=== PATIENT | male | born 1970 | race Caucasian/White ===

== ENCOUNTER → 2017-08-15 08:22 | Outpatient (CLI) | payer MEDICAID | END | disposition home or self-care (01) | LOC: D.MRI 08:22 | DX: R22.1 Localized swelling, mass and lump, neck (principal); R13.10 Dysphagia, unspecified ==

== ENCOUNTER 2020-12-09 10:47 | Day surgery (SDC) | payer BC ==
[~2020-12-09] VITALS: Ht 182.9 cm; Wt 88.6 kg
--- NOTE | ~2020-12-09 | OP ---
PATIENT NAME: WENDY MAC MEDICAL RECORD: [id number] :68 LOCATION:[facility] ADMISSION DATE: SURGEON: AILYN GRAY MD DATE OF OPERATION: 12/09/2020 PREOPERATIVE DIAGNOSIS: Perirectal abscess. POSTOPERATIVE DIAGNOSIS: Perirectal abscess. PROCEDURE: I and D of left perirectal abscess. SURGEON: Ailyn Gray MD DESCRIPTION OF PROCEDURE: The patient was given a spinal anesthesia and the perianal region was prepped and draped in sterile fashion. On digital rectal exam, I can feel firmness to the left side of the anus. A skin incision was made longitudinally on the 3 o'clock position, and using a hemostat, I did blunt dissection up to the abscess cavity. Once we penetrated the cavity, there was a spillage of purulent material. Cultures were taken times 3. We then irrigated out the abscess cavity with peroxide and saline solution. We then packed the wound with iodoform gauze, quarter inch packing strips, and covered it with an ABD pad. COMPLICATIONS: None. CONDITION: Stable. ANESTHESIA: Spinal. BLOOD LOSS: Minimal. TRANSINT:[id number] Voice Confirmation ID: [id number] DOCUMENT ID: [id number] AILYN GRAY MD CC: [id number] DICTATION DATE: 12/09/20 1530 CRYPTOLOGIC TECHNICIAN TECHNICAL: 12/10/20 0104 [facility] 12/09/20 [id number] [place] [address]
[2020-12-09 10:54] VITALS: BP 123/67
[2020-12-09 12:13] LABS: BILIRUBIN NEGATIVE (NEGATIVE); KETONE NEGATIVE (NEGATIVE); NITRITE NEGATIVE (NEGATIVE); UROBILINOGEN NORMAL mg/dL (< 2)
[2020-12-09 12:17] LABS: CALC OSMOLALITY 276 mosm/kg (275-300); CALCIUM 8.9 mg/dL (8.5-10.1); CARBON DIOXIDE 27.4 mmol/L (21.0-32.0); CHLORIDE - SERUM 101 mmol/L (98-107); CREATININE - SERUM 1.1 mg/dL (0.6-1.3); GLUCOSE 106 mg/dL (74-106); POTASSIUM - SERUM 4.2 mmol/L (3.5-5.1); SODIUM 137 mmol/L (136-145); UREA NITROGEN 21 mg/dL (7-18); eGFR NON AFRICAN AMERICAN 75 mL/min (90-120)
[2020-12-09 12:25] LABS: BASOPHILS 0.1 % (0-2); EOSINOPHILS 0.1 % (0-7); HEMATOCRIT 40.9 % (42.0-54.0); HEMOGLOBIN 13.9 g/dL (13.5-17.5); IMMATURE GRANULOCYTES 0.1 % (0-5); LYMPHOCYTE ABS# 1.26 10x3/uL (1.32-3.57); LYMPHOCYTES 10.4 % (15-50); MCH 30.6 pg (26.0-34.0); MCV 90.1 fL (80.0-100.0); MEAN PLATELET VOLUME 9.7 fL (7.4-10.4); MONOCYTES 8.1 % (2-11); NEUTROPHIL ABS# 9.87 10x3/uL (1.78-5.38); NEUTROPHILS 81.2 % (40-80); PLATELET COUNT 233 10x3/uL (130-400); RBC 4.54 10x6/uL (4.20-6.10); RDW 12.8 % (11.5-14.5); WBC 12.2 10x3/uL (4.8-10.8)
[2020-12-09 12:33] LABS: BILIRUBIN NEGATIVE (NEGATIVE); KETONE NEGATIVE (NEGATIVE); NITRITE NEGATIVE (NEGATIVE); UROBILINOGEN NORMAL mg/dL (< 2)
[2020-12-09 14:09] VITALS: Ht 182.9 cm; Wt 88.6 kg
[2020-12-09] MEDS ORDERED: BACTRIM DS TAB1 EAC1 PO (15:28)
[2020-12-09] MEDS ORDERED: HYDROCODON-ACE1 EA10 PO (15:29)
--- NOTE | 2020-12-09 16:53 | NUR ---
1645 PT HAS CHILLS AND 2 WARM BLANKES PROVIDED
--- NOTE | 2020-12-09 17:47 | NUR ---
1735 DEMEROL 12.5MG GIVEN SLOW IVP FOR SHIVERING. PATIENT VOMITED ABOUT 3-4 MINUTES AFTER GIVING DEMEROL. COOL COMPRESS TO HEAD AND NECK FOR COMFORT. AT BEDSIDE.
--- NOTE | 2020-12-09 18:13 | NUR ---
1755 DISCHARGE INSTRUCTIONS GIVEN TO PATIENT'S SPOUSE. VOICED UNDERSTANDING.
--- NOTE | 2020-12-09 19:01 | NUR ---
1747 PATIENT'S IV D/C'D WITH TIP INTACT. UP TO SIDE OF BED. TOLERATED WELL WITH NO COMPLAINTS OF DIZZINESS OR NAUSEA. ABD PAD REPLACED DUE TO NEAR SATURATION WITH BLOOD. RESTING COMFORTABLY AT THIS TIME.
--- NOTE | 2020-12-09 19:32 | NUR ---
1915 PATIENT UP TO SIDE OF BED. DRESSED HIMSELF. STILL REPORTS MILD NUMBNESS IN BLE BUT IS ABLE TO STAND AND TAKE STEPS WITH MINIMAL ASST. PATIENT HAS 30 MINUTE RIDE BACK TO HOME SO PROVIDED HIM WITH SPRITE AND SALTINE CRACKERS ALONG WITH EMESIS BAGS.
== END 2020-12-09 19:30 | disposition home or self-care (01) ==
LOC: D.ER 10:47 → D.OPS 13:32 → D.ER 15:42 → D.OPS 19:30
PROVIDERS: Emergency Medicine; ATTEND Surgery
DX: K61.1 Rectal abscess (principal)